=== PATIENT | male | born 2000 | race Asian ===

== ENCOUNTER 2021-08-04 15:33 | Outpatient (CLI) | payer OTHER, SELFPAY | END 2021-08-04 23:59 | disposition home or self-care (01) | LOC: IMMUN 08-08 15:34 | PROVIDERS: Visit Provider Family Medicine | DX: Z23 Encounter for immunization (principal) ==

== ENCOUNTER 2024-07-15 20:28 | Emergency (ER) | payer OTHER, SELFPAY ==
[2024-07-15 20:29] VITALS: BP 134/90; PULSE 136; RESP 22; TEMP 36.8; O2SAT 100; BMI 28.5
--- NOTE | 2024-07-15 20:44 | EDS_ITS ---
HPI History of Present Illness Chief Complaint: General Illness PFS PFS Medical History no medical history Home Medications ?Medication ?Instructions ?Recorded ?Last Taken ?Type NK 07/15/24 Unknown History Allergy/AdvReac Type Severity Reaction Status Date / Time No Known Allergies Allergy Verified 07/15/24 20:30 Family History no significant family his Surgical History no surgical history Social History Smoking Status: Current every day smoker tobacco type: cigarettes EXAM Physical Exam Const Vital Signs: 07/15/24 20:29 07/15/24 20:36 Temperature 98.3 F Temperature Source Temporal Pulse Rate 136 H Respiratory Rate 22 H Respiratory Effort Normal Respiratory Pattern Normal Blood Pressure 134/90 H Blood Pressure Mean 104 Pulse Ox 100 Oxygen Delivery Method Room Air MDM MDM MDM Narrative Medical decision making narrative: HISTORY OF PRESENT ILLNESS: 23-year-old male presents for shortness of breath, dizziness cramping and sweating. States this began today. States he just darted vegetarian diet today. Notes earlier today he started feeling shortness of breath. Notes he has difficult time breathing. Denies chest pain. Denies leg swelling. The patient denies recent surgery in the last 4 weeks or immobilization in the last 3 days, denies previous diagnosis of DVT or PE, hemoptysis, unilateral leg swelling or malignancy with treatment the last 6 months or palliative. No estrogen use noted. Denies any bleeding diathesis. REVIEW OF SYSTEMS: Pertinent positives: Shortness of breath, dizziness, cramping Pertinent negatives: Syncope, leg swelling PHYSICAL EXAM: Nursing triage notes reviewed, Vital signs reviewed Constitutional: please see mdm HENT: MMM Eyes: Pupils equal round and reactive to light, Extraocular muscles intact Neck: No stridor, no JVD, full neck ROM Lungs: Clear to auscultation, No wheezing or rales. No increased work of breathing, no conversational dyspnea, no accessory muscle use, no nasal flaring. No respiratory distress noted Heart: Regular rate and rhythm, No murmurs, No rubs and No gallops, 2+ distal pulses (radial, femoral, posterior tibial) in all extremities Abdomen: Soft, there is no tenderness, rigidity, rebound or guarding, no obvious peritoneal signs, no palpable pulsatile abdominal masses, no auscultated abdominal bruit : No CVAT Extremities: No edema Neuro: Alert and oriented x3, neuro exam at baseline, cranial nerves II through XII are intact. No pain with extraocular muscle movement. There is negative test of skew. 5 of 5 strength in upper and lower extremities in flexion extension. Intact sensation to light touch in upper and lower extremity dermatomes. No truncal or extremity ataxia. No dysdiadochokinesia. Normal gait. 2+ reflexes in upper and lower extremities. No meningeal signs. Negative Babinski. NIH of 0. Skin: No rash or lesions noted MEDICAL DECISION MAKING: Chief Complaint: As per HPI External records reviewed: No prior ED visits noted. Reviewed allergies, home medicines Factors affecting care: none reported in the chart Social determinants of health: Denies illicit drug use History obtained from others: friend Consults: none [facility] Narrative: Patient was initially tachycardic rate 136, tachypneic at a rate of 22, otherwise afebrile and nontoxic-appearing. Exam without focal cardiopulmonary abnormalities. No increased work of breathing. No distress. I considered the following differential diagnosis: COVID/RSV/flu/pn eumonia/ACS/arrhythmia/PE I obtained a broad lab and imaging workup to further elucidate the etiology of the patient's complaints ALL IMAGES (IF OBTAINED) HAVE BEEN PERSONALLY REVIEWED AND INTERPRETED BY MYSELF. I have personally reviewed the patient's chest x-ray. Chest x-ray is unremarkable for pulmonary edema, pneumothorax, pneumonia or focal cardiopulmonary abnormality. EKG with normal sinus rhythm, normal axis, normal intervals, no STEMI CBC with leukocytosis suggestive of systemic information, no anemia or thrombocytopenia BMP without evidence of significant electrolyte abnormalities, no anion gap, no acute kidney injury. High-sensitivity troponin is negative, no evidence of myocardial ischemia The synthesis of the patient's history, physical exam, labs images suggest no acute life-limiting etiology. On reassessment patient's heart rate resolved to 94. Tachypnea improved. He remained afebrile and saturating well on room air. The etiology of her symptoms unclear however it is unlikely be passenger relations representative of a life threatening etiology given unremarkable history, physical exam, labs and images. Patient is appropriate discharge home for close outpatient follow-up. The patient and/or family, caregivers express understanding. The patient and/or family, caregivers agrees with the plan. Shared decision making: I will have a discussion with the patient and or visitors regarding risk/benefits of further testing or admission. They will be made aware of of the risk/benefits inherent in this decision they will be given the opportunity to voice understanding. Total critical care time today provided was at least 0 minutes. This excludes separately billable procedures. Critical care time (if documented) is secondary to the patient having high probability of clinically significant/life threatening deterioration in the patient's condition which required my urgent intervention. Impression: 1. Dyspnea 2. Tachycardia (resolved) Dispo: Discharge home This note was generated with [employer] dictation software. It may contain incorrect words, spelling, and punctuation that were not noted in review of the chart prior to signing. Lab Data Labs: Laboratory Results - last 24 hr 07/15/24 07/15/24 20:47 21:12 WBC 13.9 H RBC 5.35 Hgb 15.7 Hct 46.7 MCV 87.3 MCH 29.3 MCHC 33.6 RDW Std Deviation 40.3 RDW Coeff of Prabhu 12.7 Plt Count 303 MPV 10.4 Sodium 137 Potassium 3.7 Chloride 104 Carbon Dioxide 21.0 Anion Gap 12 BUN 11 Creatinine 1.22 Estim Creat Clear Calc 97.76 Est GFR (MDRD) Af Amer 95 Est GFR (MDRD) Non-Af 78 BUN/Creatinine Ratio 9.0 L Glucose 147 H Calcium 10.0 Troponin I High Sens < 3 L POC Glucose 143 H Radiography Diagnostic Testing: Clinical Impression(s) from Imaging Studies Chest X-Ray 07/15/24 21:20 IMPRESSION: No acute cardiopulmonary process. Reading Location: [facility] Discharge Plan Triage Chief Complaint: General Illness ED Provider: Israel Castano Dx/Rx/DC Orders Clinical Impression: Acute dyspnea Instructions: ED Dyspnea Prescriptions: No Action NK Primary Care Provider: Care Physician,No Primary Referrals: Dorian Wayne MD [Med Staff - Active Staff] - Activity Restrictions/Additional Instructions: Thank you for trusting us with your care today! Your labs images were reassuring. Specifically no sign of pneumonia, COVID, RSV, flu, damage to your heart, abnormal heart rhythms. Please take Tylenol (2 pills, 650 mg), ibuprofen (2 pills, 400 mg) every 6 hours as needed for pain and fever control. Please return to the emergency department if your symptoms change or worsen. Please follow with your primary care physician for further outpatient evaluation and management. Print Language: Greek Disposition Disposition: Home, Self Care
--- NOTE | 2024-07-15 20:57 | EKG12_ITS ---
Test Reason : DYSRHYTHMIA Blood Pressure : */* mmHG Vent. Rate : 94 BPM Atrial Rate : 94 BPM P-R Int : 154 ms QRS Dur : 82 ms QT Int : 340 ms P-R-T Axes : 31 53 28 degrees QTcB Int : 425 ms Normal sinus rhythm with sinus arrhythmia Early repolarization Normal ECG Confirmed by PARIS YOUNG, MELANY ([id number]), editorial director KOSTAS REYES ([id number]) on 07/17/2024 1:01:48 PM Referred By: Confirmed By: MELANY TOLEDO MD
--- NOTE | 2024-07-15 21:03 | ED.RN ---
no old ekg
[2024-07-15 21:05] LABS: Bedside Glucose 143 mg/dL (74-106)
--- NOTE | 2024-07-15 21:20 | RAD_ITS ---
PROCEDURE: CHEST 1 VIEW (PORTABLE) REASON FOR EXAM: Shortness of breath. TECHNIQUE: Frontal view of the chest. COMPARISON: None. FINDINGS: Cardiac size and pulmonary vasculature are within normal limits. No consolidation, pleural effusion, or pneumothorax is present. RAD/Chest 1 View (Portable) IMPRESSION: No acute cardiopulmonary process. Reading [facility]
[2024-07-15 21:21] LABS: Hematocrit 46.7 % (40-54); Hemoglobin 15.7 g/dL (13.0-16.5); Mean Corp Hgb Conc 33.6 g/dL (32-36); Mean Corpuscular Hgb 29.3 pg (27.0-32.0); Mean Corpuscular Volume 87.3 fL (80-94); Mean Platelet Vol. 10.4 fl (6.2-12.0); Platelet Count 303 K/mm3 (150-450); RBC Distribution Width CV 12.7 % (11.6-14.6); RBC Distribution Width SD 40.3 fl (35.1-43.9); Red Blood Count 5.35 M/mm3 (4.6-6.2); White Blood Count 13.9 K/mm3 (4.4-11.0)
[2024-07-15 21:44] LABS: Anion Gap 12 (5-15); BUN 11 mg/dL (7-18); Chloride 104 mmol/L (98-107); Creatinine, Serum 1.22 mg/dL (0.70-1.30); EST Glomerular Filtration Rate 78 mL/min (>60); Est Glom Filt Rate - Afr Amer 95 mL/min (>60); Estimated Creatinine Clearance 97.76 ml/min; Glucose 147 mg/dL (74-106); Potassium 3.7 mmol/L (3.5-5.1); Sodium Level 137 mmol/L (136-145); Troponin-I HS < 3 pg/mL (3.0-78.0)
[2024-07-15 22:32] VITALS: BP 122/77; PULSE 102; RESP 18; TEMP 36.8; O2SAT 98
== END 2024-07-15 22:36 | disposition home or self-care (01) ==
PROVIDERS: Emergency Provider Emergency Medicine; Visit Provider Emergency Medicine
DX: R06.00 Dyspnea, unspecified (principal); R00.0 Tachycardia, unspecified; R61 Generalized hyperhidrosis; R42 Dizziness and giddiness; F17.210 Nicotine dependence, cigarettes, uncomplicated
CPT/HCPCS: 71045; 80048; 82962; 84484; 85027; 87631; 93005; 99283; A4216